=== PATIENT | male | born 1960 | race Caucasian/White ===

== ENCOUNTER 2021-07-23 18:34 | Inpatient (IN) | payer MEDICARE, MEDICAID ==
[~2021-07-23] VITALS: Ht 198.1 cm; Wt 112.3 kg
[~2021-07-23 18:34] MED LIST: ACET-1008 PO; AMIO200T61 PO; AMIT25TA9 PO; APIX5TAB3 PO; ASPI-1071 PO; DIGO125T PO; EMPA25TA PO; GABA300C PO; HYDR-3964 PO; HYDR25TA4 PO; INSU100V9 SQ; LEVO125T8 PO; LISI20TA28 PO; LOP25T PO; METF-438 PO; SIMV-42 PO
--- NOTE | 2021-07-23 19:13 | NUR ---
Dr. Dominguez notified of patient's current BP 88/57, 02 sat 98% RA and IVF by EMS running. Per MD, caution with IVF given hx and continue NS @ 100 mls/hr.
--- NOTE | 2021-07-23 19:15 | NUR ---
Sister at bedside: Emilia Lindquist [phone]
[2021-07-23 19:50] LABS: BASOPHILS % (AUTO) 0.4 % (0-1); EOSINOPHILS % (AUTO) 0.1 % (0-6); HEMATOCRIT 25.7 % (42.0-52.0); HEMOGLOBIN 8.5 g/dl (14.0-17.9); LYMPHOCYTES # (AUTO) 0.8 X10'3 (1.1-4.8); LYMPHOCYTES % (AUTO) 8.3 % (21-51); MEAN CORPUSCULAR HGB CONC 33.2 g/dL (33.0-36.5); MEAN CORPUSCULAR VOLUME 96.6 FL (78-98); MEAN PLATELET VOLUME 8.1 FL (7.4-10.4); MONOCYTES # (AUTO) 0.4 X10'3 (0-0.9); MONOCYTES % (AUTO) 4.2 % (2-12); NEUTROPHILS # (AUTO) 8.8 X10'3 (1.8-7.7); PLATELET COUNT 631 X10'3 (140-440); RED BLOOD COUNT 2.66 X10'6 (4.70-6.10); WHITE BLOOD COUNT 10.1 X10'3 (4.5-11.0)
[2021-07-23 19:59] LABS: ALANINE AMINOTRANSFERASE 38 U/L (12-78); ALBUMIN 2.4 G/DL (3.4-5.0); ALBUMIN/GLOBULIN RATIO 0.6 (1.1-1.5); ALKALINE PHOSPHATASE 120 IU/L (46-116); ANION GAP 11 (8-16); ASPARTATE AMINO TRANSFERASE 20 U/L (10-37); BILIRUBIN,TOTAL 0.5 MG/DL (0.1-1.0); BLOOD UREA NITROGEN 28 MG/DL (7-18); BUN/CREATININE RATIO 15.8 (5.4-32.0); CALCIUM 7.7 MG/DL (8.5-10.1); CHLORIDE 101 MMOL/L (99-107); CREATININE 1.77 MG/DL (0.60-1.10); GLUCOSE 184 MG/DL (70-104); POTASSIUM 4.9 MMOL/L (3.5-5.1); SODIUM 134 MMOL/L (135-145); TOTAL CARBON DIOXIDE 21.8 MMOL/L (24-32); TOTAL PROTEIN 6.5 G/DL (6.4-8.2); eGFR 39 ML/MIN
[2021-07-23] MEDS ORDERED: normal saline 1000ML IV soln IVB ONE (20:25)
[2021-07-23] MEDS ORDERED: potassium Cl 20 mEq SR tablet PO PRN ×2 (21:00)
[2021-07-23] MEDS ORDERED: ondansetron/PF 4mg/2ml inj IV PRN (21:00)
[2021-07-23] MEDS ORDERED: potassium Cl 40MEQ/1/2NS 520ml 520 ML IV PRN ×2 (21:00)
[2021-07-23] MEDS ORDERED: temazepam 15mg capsule PO PRN (21:00)
[2021-07-23] MEDS ORDERED: magnesium 4gm in 100ml NS 100 ML IV PRN (21:00)
[2021-07-23] MEDS ORDERED: acetaminophen 325mg tablet PO PRN ×2 (21:00)
[2021-07-23] MEDS ORDERED: magnesium 2GM in 50ml NS 50 ML IV PRN (21:00)
[2021-07-23] MEDS ORDERED: normal saline 1000ml 1,000 ML IV SCH (21:00)
[2021-07-23] MEDS ORDERED: magnesium Cl slow-release 64mg tablet PO PRN (21:00)
[2021-07-23] MEDS ORDERED: dextrose ORAL solution 15 GM/59 ML bottle PO PRN ×2 (21:05)
[2021-07-23] MEDS ORDERED: MESSAGE TO PHARMACY PO ONE (21:05)
[2021-07-23] MEDS ORDERED: dextrose 50%-water 50ml dispensing syringe IV PRN ×2 (21:05)
[2021-07-23] MEDS ORDERED: glucagon, human recombinant 1mg kit SUBCUT PRN (21:05)
[2021-07-23] MEDS ORDERED: AMIO200T27 PO (21:15)
[2021-07-23] MEDS ORDERED: DIGO125T PO (21:18)
[2021-07-23] MEDS ORDERED: FURO-149 PO (21:21)
[2021-07-23] MEDS ORDERED: LEVO500T89 PO (21:22)
[2021-07-23] MEDS ORDERED: PRED5TAB PO (21:23)
[2021-07-23] MEDS ORDERED: POTA10TA19 PO (21:24)
[2021-07-23] MEDS ORDERED: RIVA20TA PO (21:25)
[2021-07-23] MEDS ORDERED: HYDROcodone/acetaminophen 5mg/325mg tablet PO PRN (21:40)
[2021-07-24 02:32] LABS: HEMOGLOBIN 8.9 g/dl (14.0-17.9); MEAN PLATELET VOLUME 8.5 FL (7.4-10.4); MONOCYTES # (AUTO) 0.4 X10'3 (0-0.9); WHITE BLOOD COUNT 11.3 X10'3 (4.5-11.0)
[2021-07-24 02:34] LABS: BASOPHILS # (AUTO) 0.1 X10'3 (0-0.2); BASOPHILS % (AUTO) 0.7 % (0-1); EOSINOPHILS % (AUTO) 0.1 % (0-6); LYMPHOCYTES # (AUTO) 1.1 X10'3 (1.1-4.8); LYMPHOCYTES % (AUTO) 9.7 % (21-51); MEAN CORPUSCULAR HEMOGLOBIN 31.2 PG (27.0-31.0); MEAN CORPUSCULAR HGB CONC 31.9 g/dL (33.0-36.5); MEAN CORPUSCULAR VOLUME 98.1 FL (78-98); MONOCYTES % (AUTO) 3.1 % (2-12); NEUTROPHILS # (AUTO) 9.7 X10'3 (1.8-7.7); NEUTROPHILS % (AUTO) 86.4 % (42-75); PLATELET COUNT 680 X10'3 (140-440); RED BLOOD COUNT 2.85 X10'6 (4.70-6.10); RED CELL DISTRIBUTION WIDTH 14.3 % (11.5-14.5)
[2021-07-24 02:39] LABS: ALANINE AMINOTRANSFERASE 41 U/L (12-78); ALBUMIN 2.5 G/DL (3.4-5.0); ALBUMIN/GLOBULIN RATIO 0.6 (1.1-1.5); ALKALINE PHOSPHATASE 115 IU/L (46-116); ANION GAP 14 (8-16); ASPARTATE AMINO TRANSFERASE 38 U/L (10-37); BILIRUBIN,TOTAL 0.7 MG/DL (0.1-1.0); BLOOD UREA NITROGEN 33 MG/DL (7-18); BUN/CREATININE RATIO 18.1 (5.4-32.0); CHLORIDE 100 MMOL/L (99-107); CREATININE 1.82 MG/DL (0.60-1.10); GLUCOSE 198 MG/DL (70-104); POTASSIUM 5.1 MMOL/L (3.5-5.1); SODIUM 135 MMOL/L (135-145); TOTAL CARBON DIOXIDE 21.2 MMOL/L (24-32); TOTAL PROTEIN 6.7 G/DL (6.4-8.2); eGFR 38 ML/MIN
[2021-07-24 02:42] LABS: MAGNESIUM 2.4 MG/DL (1.5-2.4)
[2021-07-24 07:30] VITALS: BP 101/65
[2021-07-24] MEDS: K and/or MAG REPLACEMENT MC SCH ×2 (08:00→20:00)
[2021-07-24] MEDS: metoprolol tartrate 50mg tablet PO SCH ×2 (08:00→20:00)
[2021-07-24] MEDS ORDERED: heparin, porcine 5000 units/ml vial SQ SCH (08:00)
[2021-07-24] MEDS: lisinopril 5mg tablet PO SCH (08:00)
[2021-07-24] MEDS: amiodarone 200mg tablet PO SCH ×2 (09:03→20:12)
[2021-07-24] MEDS: aspirin 81mg, enteric-coated 1 TAB TABLET.DR PO SCH (09:03)
[2021-07-24] MEDS: digoxin 125mcg (0.125mg) tablet PO SCH (09:03)
[2021-07-24] MEDS: levoFLOXACIN 500mg tablet PO SCH (09:03)
[2021-07-24] MEDS: predniSONE 5mg tablet PO SCH (09:04)
[2021-07-24] MEDS: levoTHYROXINE 125mcg tablet PO SCH (09:04)
--- NOTE | 2021-07-24 09:13 | NUR ---
notified. PAGER ID: [phone] MESSAGE: Re: Lopez Huerta. [id number]. Pt. orthopneic. Diminished Left base. Placed on 1L NC. Vitals WNL but looks unwell.. Held blood pressure medication. Thanks. Mary. [phone].
[2021-07-24 11:00] VITALS: BP 101/67
--- NOTE | 2021-07-24 14:13 | NUR ---
Paged the PICC nurse to see if she could place a PIV. Addendum: 07/24/21 at 1417 by Connie Pepe RN PICC nurse called back and stated that she can't place a PIV because she is on lunch right now and after her lunch that she has to place two PICCs in the ICU.
--- NOTE | 2021-07-24 14:54 | NUR ---
notified. PAGER ID: [phone] MESSAGE: Re: Lopez yun. [id number]. Normal ZEN found on vascular US.. Abnomal, retrograde flow in the left DPA. No stenosis or occlusion visualized. Thanks mayte. [id number].
[2021-07-24] MEDS ORDERED: ondansetron 4mg rapidly disintigrating tab PO PRN (14:55)
[2021-07-24 15:00] VITALS: BP 103/54
--- NOTE | 2021-07-24 15:24 | NUR ---
notified. PAGER ID: [phone] MESSAGE: Re: Deanna Lopez. [id number]. Elva from Cardiology not seeing patient because he is a Dr. Chawla patient. She called Dr. Chawla but no answer. Thanks. mayte. [phone].
[2021-07-24] MEDS: rivaroxaban 20mg tablet PO SCH (16:25)
[2021-07-24 18:00] VITALS: BP 103/54
--- NOTE | 2021-07-24 18:19 | NUR ---
Problems reprioritized. Patient report given, questions answered & plan of care reviewed with AMBER Davies.
--- NOTE | 2021-07-24 18:30 | NUR ---
Patient in room PCU 3016. I have received report from Mary CLARK and had the opportunity to ask questions and assume patient care.
[2021-07-24] MEDS: insulin Lispro (HumaLOG) vial - multi-dose SQ SCH (19:13)
[2021-07-24] MEDS: amitriptyline 25mg tablet PO SCH (20:12)
[2021-07-24] MEDS: lactobacillus rhamnosus 10,000 MMU CELLS/CAPSULE PO SCH (20:12)
[2021-07-24] MEDS: atorvastatin 10mg tablet PO SCH (20:12)
[2021-07-24] MEDS: insulin glargine (Lantus) pen - multi-dose SQ SCH (21:37)
[2021-07-24 22:00] VITALS: BP 101/57
[2021-07-25 02:00] VITALS: BP 92/52
[2021-07-25 05:56] LABS: HEMOGLOBIN 8.9 g/dl (14.0-17.9); MEAN PLATELET VOLUME 7.9 FL (7.4-10.4); MONOCYTES # (AUTO) 0.9 X10'3 (0-0.9)
[2021-07-25 05:59] LABS: BASOPHILS % (AUTO) 0.3 % (0-1); EOSINOPHILS % (AUTO) 0.3 % (0-6); LYMPHOCYTES # (AUTO) 2.1 X10'3 (1.1-4.8); LYMPHOCYTES % (AUTO) 18.7 % (21-51); MEAN CORPUSCULAR HEMOGLOBIN 32.3 PG (27.0-31.0); MONOCYTES % (AUTO) 7.7 % (2-12); NEUTROPHILS # (AUTO) 8.3 X10'3 (1.8-7.7); PLATELET COUNT 637 X10'3 (140-440); RED BLOOD COUNT 2.76 X10'6 (4.70-6.10); RED CELL DISTRIBUTION WIDTH 14.5 % (11.5-14.5); WHITE BLOOD COUNT 11.3 X10'3 (4.5-11.0)
[2021-07-25 06:00] VITALS: BP 98/65
[2021-07-25 06:08] LABS: ALANINE AMINOTRANSFERASE 38 U/L (12-78); ALBUMIN 2.6 G/DL (3.4-5.0); ALBUMIN/GLOBULIN RATIO 0.6 (1.1-1.5); ALKALINE PHOSPHATASE 127 IU/L (46-116); ANION GAP 10 (8-16); ASPARTATE AMINO TRANSFERASE 26 U/L (10-37); BILIRUBIN,TOTAL 1.1 MG/DL (0.1-1.0); BLOOD UREA NITROGEN 36 MG/DL (7-18); BUN/CREATININE RATIO 21.3 (5.4-32.0); CALCIUM 8.3 MG/DL (8.5-10.1); CHLORIDE 100 MMOL/L (99-107); CREATININE 1.69 MG/DL (0.60-1.10); GLUCOSE 157 MG/DL (70-104); MAGNESIUM 2.1 MG/DL (1.5-2.4); POTASSIUM 4.7 MMOL/L (3.5-5.1); SODIUM 133 MMOL/L (135-145); TOTAL CARBON DIOXIDE 22.6 MMOL/L (24-32); TOTAL PROTEIN 6.7 G/DL (6.4-8.2); eGFR 41 ML/MIN
--- NOTE | 2021-07-25 06:23 | NUR ---
Problems reprioritized. Patient report given, questions answered & plan of care reviewed with Ritika CLARK.
[2021-07-25 06:44] LABS: LARGE PLATELETS FEW; PLATELET ESTIMATE INCREASED
[2021-07-25] MEDS: predniSONE 5mg tablet PO SCH (07:21)
[2021-07-25] MEDS: levoFLOXACIN 500mg tablet PO SCH (07:21)
[2021-07-25] MEDS: levoTHYROXINE 125mcg tablet PO SCH (07:21)
[2021-07-25] MEDS: lactobacillus rhamnosus 10,000 MMU CELLS/CAPSULE PO SCH ×2 (07:21→20:47)
[2021-07-25] MEDS: aspirin 81mg, enteric-coated 1 TAB TABLET.DR PO SCH (07:22)
[2021-07-25] MEDS: digoxin 125mcg (0.125mg) tablet PO SCH (07:23)
[2021-07-25] MEDS: K and/or MAG REPLACEMENT MC SCH ×2 (08:00→20:00)
[2021-07-25] MEDS: metoprolol tartrate 50mg tablet PO SCH ×2 (08:00→20:00)
[2021-07-25] MEDS: lisinopril 5mg tablet PO SCH (08:00)
[2021-07-25] MEDS: amiodarone 200mg tablet PO SCH ×2 (08:00→20:47)
[2021-07-25] MEDS: ibuprofen tablet 400 MG TABLET PO SCH ×3 (09:21→16:44)
[2021-07-25] MEDS: insulin Lispro (HumaLOG) vial - multi-dose SQ SCH ×3 (09:26→19:29)
--- NOTE | 2021-07-25 10:00 | NUR ---
Recieved verbal order from Dr. Hopkins for .25mg xanax prn q8hr for anxiety.
[2021-07-25 11:00] VITALS: BP 92/62
[2021-07-25] MEDS ORDERED: albumin (Human) 5% 250ml 250 ML IV ONE ×3 (12:05→15:15)
[2021-07-25 15:00] VITALS: BP 110/75
--- NOTE | 2021-07-25 15:33 | NUR ---
Pt is being transported off the floor for procedure.
[2021-07-25] MEDS: rivaroxaban 20mg tablet PO SCH (16:44)
[2021-07-25 18:00] VITALS: BP 92/57
--- NOTE | 2021-07-25 18:23 | NUR ---
Problems reprioritized. Patient report given, questions answered & plan of care reviewed with Keke CLARK.
--- NOTE | 2021-07-25 18:30 | NUR ---
Patient in room PCU 3016. I have received report from Mary CLARK and had the opportunity to ask questions and assume patient care.
[2021-07-25] MEDS: atorvastatin 10mg tablet PO SCH (20:47)
[2021-07-25] MEDS: amitriptyline 25mg tablet PO SCH (20:47)
[2021-07-25] MEDS: insulin glargine (Lantus) pen - multi-dose SQ SCH (21:52)
[2021-07-25 22:00] VITALS: BP 90/55
[2021-07-26] VITALS (7 sets, daily range): BP systolic 88–128; BP diastolic 51–66
[2021-07-26] MEDS: ALPRAZolam 0.25mg tablet PO PRN ×2 (01:12→20:42)
--- NOTE | 2021-07-26 05:15 | NUR ---
[place] documentation: I have reviewed and agree with all interventions, assessments performed and documented by Danitza CLARK.
--- NOTE | 2021-07-26 05:16 | NUR ---
[place] Medication Administration: For this medication-pass time frame, all medication were reviewed, dispensed, administered and documented per hospital policy by Danitza CLARK .
[2021-07-26 06:02] LABS: BASOPHILS % (AUTO) 0.2 % (0-1); EOSINOPHILS % (AUTO) 0.5 % (0-6); HEMATOCRIT 26.3 % (42.0-52.0); HEMOGLOBIN 8.7 g/dl (14.0-17.9); LYMPHOCYTES # (AUTO) 2.4 X10'3 (1.1-4.8); MEAN CORPUSCULAR HGB CONC 33.2 g/dL (33.0-36.5); MEAN CORPUSCULAR VOLUME 96.5 FL (78-98); MEAN PLATELET VOLUME 7.9 FL (7.4-10.4); MONOCYTES # (AUTO) 0.7 X10'3 (0-0.9); MONOCYTES % (AUTO) 6.7 % (2-12); NEUTROPHILS % (AUTO) 68.6 % (42-75); PLATELET COUNT 517 X10'3 (140-440); RED BLOOD COUNT 2.73 X10'6 (4.70-6.10); RED CELL DISTRIBUTION WIDTH 14.2 % (11.5-14.5); WHITE BLOOD COUNT 10.2 X10'3 (4.5-11.0)
--- NOTE | 2021-07-26 06:10 | NUR ---
Patient in room PCU 3016. I have received report from Keke CLARK and had the opportunity to ask questions and assume patient care.
--- NOTE | 2021-07-26 06:11 | NUR ---
Problems reprioritized. Patient report given, questions answered & plan of care reviewed with Castillo CLARK.
[2021-07-26 06:22] LABS: ALANINE AMINOTRANSFERASE 37 U/L (12-78); ALBUMIN/GLOBULIN RATIO 0.8 (1.1-1.5); ALKALINE PHOSPHATASE 114 IU/L (46-116); ANION GAP 10 (8-16); ASPARTATE AMINO TRANSFERASE 21 U/L (10-37); BILIRUBIN,TOTAL 0.5 MG/DL (0.1-1.0); BLOOD UREA NITROGEN 35 MG/DL (7-18); BUN/CREATININE RATIO 22.6 (5.4-32.0); CALCIUM 8.1 MG/DL (8.5-10.1); CHLORIDE 102 MMOL/L (99-107); CREATININE 1.55 MG/DL (0.60-1.10); GLUCOSE 153 MG/DL (70-104); MAGNESIUM 2.2 MG/DL (1.5-2.4); POTASSIUM 4.2 MMOL/L (3.5-5.1); SODIUM 137 MMOL/L (135-145); TOTAL PROTEIN 6.6 G/DL (6.4-8.2); eGFR 46 ML/MIN
[2021-07-26] MEDS: metoprolol tartrate 50mg tablet PO SCH ×2 (08:00→20:00)
[2021-07-26] MEDS: K and/or MAG REPLACEMENT MC SCH ×2 (08:00→20:00)
[2021-07-26] MEDS: aspirin 81mg, enteric-coated 1 TAB TABLET.DR PO SCH (08:16)
[2021-07-26] MEDS: lactobacillus rhamnosus 10,000 MMU CELLS/CAPSULE PO SCH ×2 (08:16→20:42)
[2021-07-26] MEDS: digoxin 125mcg (0.125mg) tablet PO SCH (08:18)
[2021-07-26] MEDS: levoFLOXACIN 500mg tablet PO SCH (08:18)
[2021-07-26] MEDS: ibuprofen tablet 400 MG TABLET PO SCH ×3 (08:19→18:41)
[2021-07-26] MEDS: levoTHYROXINE 125mcg tablet PO SCH (08:19)
[2021-07-26] MEDS: amiodarone 200mg tablet PO SCH ×2 (08:19→20:42)
[2021-07-26] MEDS: predniSONE 5mg tablet PO SCH (08:20)
[2021-07-26] MEDS ORDERED: albumin (Human) 5% 250ml 250 ML IV ONE (09:20)
[2021-07-26] MEDS: insulin Lispro (HumaLOG) vial - multi-dose SQ SCH ×4 (09:31→21:49)
--- NOTE | 2021-07-26 18:16 | NUR ---
Problems reprioritized. Patient report given, questions answered & plan of care reviewed with Keke CLARK
--- NOTE | 2021-07-26 18:30 | NUR ---
Patient in room PCU 3016. I have received report from Shree CLARK and had the opportunity to ask questions and assume patient care.
[2021-07-26] MEDS: amitriptyline 25mg tablet PO SCH (20:42)
[2021-07-26] MEDS: atorvastatin 10mg tablet PO SCH (20:43)
[2021-07-26] MEDS: insulin glargine (Lantus) pen - multi-dose SQ SCH (21:49)
[2021-07-27] VITALS (7 sets, daily range): BP systolic 80–107; BP diastolic 44–65
[2021-07-27 06:11] LABS: BASOPHILS % (AUTO) 0.2 % (0-1); EOSINOPHILS % (AUTO) 0.2 % (0-6); HEMATOCRIT 26.7 % (42.0-52.0); HEMOGLOBIN 8.8 g/dl (14.0-17.9); LYMPHOCYTES % (AUTO) 20.5 % (21-51); MEAN CORPUSCULAR HEMOGLOBIN 32.3 PG (27.0-31.0); MEAN CORPUSCULAR HGB CONC 32.8 g/dL (33.0-36.5); MEAN CORPUSCULAR VOLUME 98.6 FL (78-98); MEAN PLATELET VOLUME 7.7 FL (7.4-10.4); MONOCYTES # (AUTO) 0.6 X10'3 (0-0.9); MONOCYTES % (AUTO) 6.6 % (2-12); NEUTROPHILS % (AUTO) 72.5 % (42-75); PLATELET COUNT 524 X10'3 (140-440); RED BLOOD COUNT 2.71 X10'6 (4.70-6.10); RED CELL DISTRIBUTION WIDTH 14.3 % (11.5-14.5); WHITE BLOOD COUNT 9.7 X10'3 (4.5-11.0)
--- NOTE | 2021-07-27 06:15 | NUR ---
Problems reprioritized. Patient report given, questions answered & plan of care reviewed with Isadora CLARK.
[2021-07-27 06:24] LABS: ALANINE AMINOTRANSFERASE 36 U/L (12-78); ALBUMIN/GLOBULIN RATIO 0.9 (1.1-1.5); ALKALINE PHOSPHATASE 113 IU/L (46-116); ANION GAP 10 (8-16); ASPARTATE AMINO TRANSFERASE 20 U/L (10-37); BILIRUBIN,TOTAL 0.4 MG/DL (0.1-1.0); BLOOD UREA NITROGEN 31 MG/DL (7-18); BUN/CREATININE RATIO 22.6 (5.4-32.0); CALCIUM 8.4 MG/DL (8.5-10.1); CHLORIDE 106 MMOL/L (99-107); CREATININE 1.37 MG/DL (0.60-1.10); GLUCOSE 142 MG/DL (70-104); MAGNESIUM 2.3 MG/DL (1.5-2.4); POTASSIUM 4.2 MMOL/L (3.5-5.1); SODIUM 141 MMOL/L (135-145); TOTAL CARBON DIOXIDE 24.8 MMOL/L (24-32); TOTAL PROTEIN 6.5 G/DL (6.4-8.2); eGFR 53 ML/MIN
[2021-07-27] MEDS: metoprolol tartrate 50mg tablet PO SCH ×2 (08:00→19:16)
[2021-07-27] MEDS: K and/or MAG REPLACEMENT MC SCH ×2 (08:00→19:14)
[2021-07-27] MEDS: ibuprofen tablet 400 MG TABLET PO SCH ×3 (08:08→17:47)
[2021-07-27] MEDS: aspirin 81mg, enteric-coated 1 TAB TABLET.DR PO SCH (08:08)
[2021-07-27] MEDS: levoTHYROXINE 125mcg tablet PO SCH (08:08)
[2021-07-27] MEDS: predniSONE 5mg tablet PO SCH (08:08)
[2021-07-27] MEDS: lactobacillus rhamnosus 10,000 MMU CELLS/CAPSULE PO SCH ×2 (08:08→19:25)
[2021-07-27] MEDS: levoFLOXACIN 500mg tablet PO SCH (08:08)
--- NOTE | 2021-07-27 08:34 | NUR ---
Page to Dr. Hopkins [id number] Yeadriel - QT 0.42/ QTc- 0.49. Still give amiodarone? Isadora [phone]
[2021-07-27] MEDS: amiodarone 200mg tablet PO SCH ×2 (09:09→19:25)
[2021-07-27] MEDS ORDERED: gabapentin 400mg capsule PO ONE (10:35)
[2021-07-27] MEDS ORDERED: cefazolin/dext.iso 2gm/50ml 50 ML IV ONE (10:35)
[2021-07-27] MEDS ORDERED: cefazolin/dext.iso 2gm/100ml 100 ML IV ONE (11:00)
[2021-07-27 11:27] LABS: PARTIAL THROMBOPLASTIN TIME 29 SECONDS (22-32)
--- NOTE | 2021-07-27 12:30 | NUR ---
Initial: Pt admitted w/ weakness and low blood pressure per EMR. 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 Pt's appetite is low, similarly to previous admit when pt requested Ensure Enlive. Pt may benefit from ONS this admit as well. Current avg intake 36% x 8 meals on CCHO/Heart Healthy diet, not meeting needs. Pt denies any food preferences. Pt noted to be constipated, though last documented BM 07/26. Will continue to monitor. Recommend 1. Continue CCHO/Heart Healthy diet as tolerated 2. Ensure Enlive TID to provide 1050kcals and 60g protein if consumed 100% 3. Bowel care per rx 4. Weekly wts Addendum: 07/27/21 at [address] Amended: Links added.
[2021-07-27] MEDS: insulin Lispro (HumaLOG) vial - multi-dose SQ SCH ×3 (13:30→21:54)
[2021-07-27] MEDS: lactose-reduced food (Ensure Enlive) - 237ml bottle PO SCH (18:00)
--- NOTE | 2021-07-27 18:00 | NUR ---
Patient in room PCU 3016. I have received report from cynthia ponce and had the opportunity to ask questions and assume patient care.
--- NOTE | 2021-07-27 18:34 | NUR ---
Problems reprioritized. Patient report given, questions answered & plan of care reviewed with Lauren CLARK.
[2021-07-27] MEDS: mupirocin 2% nasal ointment 1gm UD NS SCH (19:25)
[2021-07-27] MEDS: atorvastatin 10mg tablet PO SCH (21:40)
[2021-07-27] MEDS: amitriptyline 25mg tablet PO SCH (21:40)
[2021-07-27] MEDS: ALPRAZolam 0.25mg tablet PO PRN (21:40)
[2021-07-27] MEDS: insulin glargine (Lantus) pen - multi-dose SQ SCH (21:52)
[2021-07-28] VITALS (21 sets, daily range): BP systolic 98–127; BP diastolic 57–69
[2021-07-28 07:16] LABS: BASOPHILS % (AUTO) 0.3 % (0-1); EOSINOPHILS % (AUTO) 0.4 % (0-6); HEMOGLOBIN 8.8 g/dl (14.0-17.9); LYMPHOCYTES # (AUTO) 2.2 X10'3 (1.1-4.8); LYMPHOCYTES % (AUTO) 21.5 % (21-51); MEAN CORPUSCULAR HEMOGLOBIN 31.7 PG (27.0-31.0); MEAN CORPUSCULAR HGB CONC 32.6 g/dL (33.0-36.5); MEAN CORPUSCULAR VOLUME 97.4 FL (78-98); MEAN PLATELET VOLUME 7.7 FL (7.4-10.4); MONOCYTES # (AUTO) 0.6 X10'3 (0-0.9); MONOCYTES % (AUTO) 6.2 % (2-12); NEUTROPHILS # (AUTO) 7.2 X10'3 (1.8-7.7); NEUTROPHILS % (AUTO) 71.6 % (42-75); PLATELET COUNT 531 X10'3 (140-440); RED BLOOD COUNT 2.78 X10'6 (4.70-6.10); RED CELL DISTRIBUTION WIDTH 14.7 % (11.5-14.5); WHITE BLOOD COUNT 10.1 X10'3 (4.5-11.0)
[2021-07-28] MEDS: mupirocin 2% nasal ointment 1gm UD NS SCH ×2 (07:28→19:46)
[2021-07-28] MEDS: levoTHYROXINE 125mcg tablet PO SCH (07:28)
[2021-07-28] MEDS: levoFLOXACIN 500mg tablet PO SCH (07:28)
[2021-07-28] MEDS: predniSONE 5mg tablet PO SCH (07:28)
[2021-07-28] MEDS: lactobacillus rhamnosus 10,000 MMU CELLS/CAPSULE PO SCH ×2 (07:28→19:39)
[2021-07-28] MEDS: amiodarone 200mg tablet PO SCH ×2 (07:28→19:46)
[2021-07-28 07:36] LABS: ALANINE AMINOTRANSFERASE 33 U/L (12-78); ALBUMIN 2.9 G/DL (3.4-5.0); ALBUMIN/GLOBULIN RATIO 0.9 (1.1-1.5); ALKALINE PHOSPHATASE 112 IU/L (46-116); ANION GAP 10 (8-16); ASPARTATE AMINO TRANSFERASE 16 U/L (10-37); BILIRUBIN,TOTAL 0.4 MG/DL (0.1-1.0); BLOOD UREA NITROGEN 28 MG/DL (7-18); BUN/CREATININE RATIO 19.9 (5.4-32.0); CALCIUM 8.3 MG/DL (8.5-10.1); CHLORIDE 107 MMOL/L (99-107); CREATININE 1.41 MG/DL (0.60-1.10); GLUCOSE 117 MG/DL (70-104); MAGNESIUM 2.2 MG/DL (1.5-2.4); SODIUM 142 MMOL/L (135-145); TOTAL CARBON DIOXIDE 24.9 MMOL/L (24-32); TOTAL PROTEIN 6.3 G/DL (6.4-8.2); eGFR 51 ML/MIN
[2021-07-28] MEDS: metoprolol tartrate 50mg tablet PO SCH ×2 (08:00→19:38)
[2021-07-28] MEDS: aspirin 81mg, enteric-coated 1 TAB TABLET.DR PO SCH (08:00)
[2021-07-28] MEDS: K and/or MAG REPLACEMENT MC SCH ×2 (08:00→19:22)
[2021-07-28] MEDS: lactose-reduced food (Ensure Enlive) - 237ml bottle PO SCH ×3 (08:00→18:00)
[2021-07-28] MEDS: ibuprofen tablet 400 MG TABLET PO SCH ×3 (08:30→17:42)
[2021-07-28] MEDS ORDERED: BUPIVAcaine 0.5% inj/PF 30 ML ONE (10:03)
[2021-07-28 11:15] LABS: CLARITY,URINE CLEAR (Clear); COLOR,URINE YELLOW (Yellow); GLUCOSE, URINE NEGATIVE (Neg); KETONES,URINE NEGATIVE (Neg); LEUKOCYTE ESTERASE ,URINE NEGATIVE (Neg); NITRITES, URINE NEGATIVE (Neg); OCCULT BLOOD,URINE NEGATIVE (Neg); PH,URINE 5.5 (4.8-8.0); PROTEIN,URINE NEGATIVE (Neg)
[2021-07-28 11:18] LABS: UA COLLECTION TYPE NON-SPECIFIED
[2021-07-28] MEDS ORDERED: midazolam 1 mg/ML 2ml injection ONE ×2 (11:57→12:45)
[2021-07-28] MEDS ORDERED: fentaNYL /PF 50mcg/ml 5ml ampule ONE (11:57)
[2021-07-28] MEDS ORDERED: sevoflurane 250ml liquid IH ONE (11:58)
[2021-07-28] MEDS ORDERED: BUPIVAcaine 0.5% inj/PF 30 ml vial IJ ONE (13:02)
[2021-07-28] MEDS ORDERED: morphine 2 MG/ML inj. syringe IV PRN (13:25)
[2021-07-28] MEDS ORDERED: meperidine/PF 25mg/ml syringe IV PRN ×3 (13:25)
[2021-07-28] MEDS ORDERED: ringers solution, lacted 1,000 ML IV SCH (13:25)
[2021-07-28] MEDS ORDERED: proCHLORperazine 10 MG/2 ml inj IV PRN (13:25)
[2021-07-28] MEDS ORDERED: morphine 4 MG/ML inj SYRINge IV PRN (13:25)
[2021-07-28] MEDS ORDERED: ondansetron/PF 4mg/2ml inj IV PRN ×2 (13:25→13:45)
[2021-07-28] MEDS ORDERED: neostigmine methylsulfate 1 MG/ML 10ml vial ONE (13:31)
[2021-07-28] MEDS ORDERED: propofol inj 20 ML IV ONE (13:31)
[2021-07-28] MEDS ORDERED: rocuronium 10mg/ml inj IV ONE (13:31)
[2021-07-28] MEDS ORDERED: glycopyrrolate 0.2mg/ml inj ONE (13:32)
[2021-07-28] MEDS ORDERED: potassium CL 10mEq/100ml bag 100 ML IV PRN (13:45)
[2021-07-28] MEDS ORDERED: potassium Cl 20mEq/100mL bag 100 ML IV PRN (13:45)
[2021-07-28] MEDS ORDERED: potassium Cl 20 mEq SR tablet PO PRN (13:45)
[2021-07-28] MEDS ORDERED: magnesium 4gm in 100ml NS 100 ML IV PRN (13:45)
[2021-07-28] MEDS ORDERED: magnesium 2GM in 50ml NS 50 ML IV PRN (13:45)
[2021-07-28] MEDS ORDERED: potassium Cl 40MEQ/1/2NS 520ml 520 ML IV PRN (13:45)
[2021-07-28] MEDS ORDERED: potassium Cl 40MEQ/250ML bag 250 ML IV PRN (13:45)
--- NOTE | 2021-07-28 13:55 | NUR ---
Received from OR via , accompanied by Anesthesiologist DR LEWIS and report given by Anesthesiolgist. AWAKENS TO VOICE. VITALS STABLE. DRESSINGS DI. MADDI PAIN. CHEST TUBE TO LCS WITHOUT AIR LEAK NOTED.
--- NOTE | 2021-07-28 14:45 | NUR ---
Report called to receiving nurse. Transferred via BED Belongings . Special Issues communicated to receiving nurse.AWAKE AND ORIENTED. VITALS STABLE. DRESSINGS DI. MADDI PAIN. TO U RM 3016 A AT THIS TIME.
[2021-07-28] MEDS: HYDROcodone/acetaminophen 10/325mg tab PO PRN ×2 (15:26→19:40)
[2021-07-28] MEDS: ceFAZolin 1GM/D5W- ADD-VANTAGE 50 ML IV SCH ×2 (16:53→23:36)
--- NOTE | 2021-07-28 18:21 | NUR ---
Patient in room PCU 3016. I have received report from MARLA CLARK and had the opportunity to ask questions and assume patient care.
--- NOTE | 2021-07-28 18:47 | NUR ---
Problems reprioritized. Patient report given, questions answered & plan of care reviewed with Deana CLARK.
[2021-07-28] MEDS: insulin Lispro (HumaLOG) vial - multi-dose SQ SCH (19:31)
[2021-07-28] MEDS: docusate sod 100mg capsule PO SCH (19:36)
[2021-07-28] MEDS: ALPRAZolam 0.25mg tablet PO PRN (19:46)
[2021-07-28] MEDS: potassium Cl 20 mEq SR tablet PO SCH (19:47)
[2021-07-28] MEDS: magnesium Cl slow-release 64mg tablet PO SCH (19:48)
--- NOTE | 2021-07-28 21:22 | NUR ---
blood glucometers off line per bellows charger assembler. will check when back online for 2100 check. AMADOR CLARK
[2021-07-28] MEDS: amitriptyline 25mg tablet PO SCH (21:58)
[2021-07-28] MEDS: atorvastatin 10mg tablet PO SCH (21:59)
[2021-07-28] MEDS: insulin glargine (Lantus) pen - multi-dose SQ SCH (22:10)
[2021-07-29] VITALS (10 sets, daily range): BP systolic 83–133; BP diastolic 32–72
[2021-07-29] MEDS: HYDROcodone/acetaminophen 10/325mg tab PO PRN ×2 (01:06→19:40)
--- NOTE | 2021-07-29 01:11 | NUR ---
STRIKE THROUGH SHADOWING ON DRESSING NOTED, MARKED FOR SURGEON. AMADOR CLARK
--- NOTE | 2021-07-29 01:21 | NUR ---
REIFORCED PER PROTOCOL. AMADOR CLARK
[2021-07-29 01:48] LABS: BASOPHILS % (AUTO) 0.3 % (0-1); EOSINOPHILS % (AUTO) 0.2 % (0-6); HEMATOCRIT 27.8 % (42.0-52.0); LYMPHOCYTES # (AUTO) 1.8 X10'3 (1.1-4.8); LYMPHOCYTES % (AUTO) 13.2 % (21-51); MEAN CORPUSCULAR HEMOGLOBIN 31.7 PG (27.0-31.0); MEAN CORPUSCULAR HGB CONC 32.2 g/dL (33.0-36.5); MEAN CORPUSCULAR VOLUME 98.4 FL (78-98); MEAN PLATELET VOLUME 7.9 FL (7.4-10.4); MONOCYTES # (AUTO) 0.5 X10'3 (0-0.9); NEUTROPHILS % (AUTO) 82.3 % (42-75); PLATELET COUNT 518 X10'3 (140-440); RED BLOOD COUNT 2.83 X10'6 (4.70-6.10); RED CELL DISTRIBUTION WIDTH 15.2 % (11.5-14.5); WHITE BLOOD COUNT 13.4 X10'3 (4.5-11.0)
[2021-07-29 01:56] LABS: ALBUMIN 2.6 G/DL (3.4-5.0); ANION GAP 8 (8-16); BLOOD UREA NITROGEN 29 MG/DL (7-18); BUN/CREATININE RATIO 21.2 (5.4-32.0); CALCIUM 7.9 MG/DL (8.5-10.1); CHLORIDE 108 MMOL/L (99-107); CREATININE 1.37 MG/DL (0.60-1.10); GLUCOSE 134 MG/DL (70-104); MAGNESIUM 1.9 MG/DL (1.5-2.4); POTASSIUM 4.5 MMOL/L (3.5-5.1); SODIUM 141 MMOL/L (135-145); TOTAL CARBON DIOXIDE 25.4 MMOL/L (24-32); eGFR 53 ML/MIN
[2021-07-29] MEDS ORDERED: albumin (Human) 5% 250ml 250 ML IV STA (02:23)
[2021-07-29] MEDS ORDERED: albumin (Human) 5% 250ml 250 ML IV ONE (02:25)
--- NOTE | 2021-07-29 02:27 | NUR ---
CALLED MARRY REGARDING BP LOW-H/H STABLE, ORDERED OF ALBUMIN. WILL ADMINISTER PER PROTOCOL. AMADOR CLARK
--- NOTE | 2021-07-29 02:28 | NUR ---
CLARIFICATION: ORDERED 500 ML ALBUMIN PER PROTOCOL.AMADOR CLARK
--- NOTE | 2021-07-29 06:24 | NUR ---
PATIENT IMPULSIVELY GOT UP TO SIDE OF BED-ORDERING CHEST XRAY FOR CHEST TUBE PLACEMENT-BP 96/60 MANUAL, 83/47 AUTO. DUMPED OVER 150 INTO [facility], CALLING MD NOW.
--- NOTE | 2021-07-29 07:01 | NUR ---
Problems reprioritized. Patient report given, questions answered & plan of care reviewed with ANGEL CLARK.
[2021-07-29] MEDS: lactobacillus rhamnosus 10,000 MMU CELLS/CAPSULE PO SCH ×2 (07:51→19:27)
[2021-07-29] MEDS: amiodarone 200mg tablet PO SCH ×2 (07:51→19:28)
[2021-07-29] MEDS: docusate sod 100mg capsule PO SCH ×2 (07:51→19:28)
[2021-07-29] MEDS: aspirin 81mg, enteric-coated 1 TAB TABLET.DR PO SCH (07:52)
[2021-07-29] MEDS: magnesium Cl slow-release 64mg tablet PO SCH ×2 (07:58→19:30)
[2021-07-29] MEDS: ibuprofen tablet 400 MG TABLET PO SCH (07:58)
[2021-07-29] MEDS: levoFLOXACIN 500mg tablet PO SCH (07:58)
[2021-07-29] MEDS: predniSONE 5mg tablet PO SCH (07:59)
[2021-07-29] MEDS: levoTHYROXINE 125mcg tablet PO SCH (07:59)
[2021-07-29] MEDS: K and/or MAG REPLACEMENT MC SCH ×2 (08:00→20:00)
[2021-07-29] MEDS: lactose-reduced food (Ensure Enlive) - 237ml bottle PO SCH ×3 (08:00→18:06)
[2021-07-29] MEDS: potassium Cl 20 mEq SR tablet PO SCH ×2 (08:00→19:29)
[2021-07-29] MEDS: mupirocin 2% nasal ointment 1gm UD NS SCH (08:00)
[2021-07-29] MEDS: metoprolol tartrate 50mg tablet PO SCH ×2 (08:00→19:29)
[2021-07-29] MEDS: insulin Lispro (HumaLOG) vial - multi-dose SQ SCH ×2 (13:16→19:26)
--- NOTE | 2021-07-29 18:11 | NUR ---
Problems reprioritized. Patient report given, questions answered & plan of care reviewed with Deana CLARK.
--- NOTE | 2021-07-29 18:17 | NUR ---
Patient in room PCU 3016. I have received report from MARLA CLARK and had the opportunity to ask questions and assume patient care.
[2021-07-29] MEDS: enoxaparin 40mg/0.4ml syringe SUBCUT SCH (19:31)
[2021-07-29] MEDS: ALPRAZolam 0.25mg tablet PO PRN (19:38)
[2021-07-29] MEDS: amitriptyline 25mg tablet PO SCH (19:39)
[2021-07-29] MEDS: atorvastatin 10mg tablet PO SCH (19:40)
[2021-07-29] MEDS: insulin glargine (Lantus) pen - multi-dose SQ SCH (21:56)
[2021-07-30] MEDS: HYDROcodone/acetaminophen 10/325mg tab PO PRN ×4 (00:12→21:40)
[2021-07-30 02:00] VITALS: BP 141/84
[2021-07-30 03:58] LABS: BASOPHILS # (AUTO) 0.1 X10'3 (0-0.2); BASOPHILS % (AUTO) 0.5 % (0-1); EOSINOPHILS # (AUTO) 0.2 X10'3 (0-0.9); EOSINOPHILS % (AUTO) 1.6 % (0-6); HEMATOCRIT 30.1 % (42.0-52.0); HEMOGLOBIN 9.7 g/dl (14.0-17.9); LYMPHOCYTES % (AUTO) 15.6 % (21-51); MEAN CORPUSCULAR HEMOGLOBIN 31.7 PG (27.0-31.0); MEAN CORPUSCULAR HGB CONC 32.2 g/dL (33.0-36.5); MEAN CORPUSCULAR VOLUME 98.6 FL (78-98); MEAN PLATELET VOLUME 7.9 FL (7.4-10.4); MONOCYTES # (AUTO) 0.6 X10'3 (0-0.9); NEUTROPHILS % (AUTO) 77.3 % (42-75); PLATELET COUNT 515 X10'3 (140-440); RED BLOOD COUNT 3.05 X10'6 (4.70-6.10); WHITE BLOOD COUNT 12.9 X10'3 (4.5-11.0)
[2021-07-30 04:11] LABS: ALBUMIN 2.9 G/DL (3.4-5.0); ANION GAP 10 (8-16); BLOOD UREA NITROGEN 27 MG/DL (7-18); BUN/CREATININE RATIO 22.9 (5.4-32.0); CALCIUM 8.4 MG/DL (8.5-10.1); CHLORIDE 106 MMOL/L (99-107); CREATININE 1.18 MG/DL (0.60-1.10); GLUCOSE 98 MG/DL (70-104); MAGNESIUM 2.1 MG/DL (1.5-2.4); POTASSIUM 4.4 MMOL/L (3.5-5.1); SODIUM 142 MMOL/L (135-145); TOTAL CARBON DIOXIDE 26.2 MMOL/L (24-32); eGFR 63 ML/MIN
--- NOTE | 2021-07-30 06:46 | NUR ---
REPORT GIVEN TO DONNELL CLARK. AMADOR CLARK
[2021-07-30 07:00] VITALS: BP 103/59
[2021-07-30] MEDS: K and/or MAG REPLACEMENT MC SCH ×2 (08:00→19:54)
[2021-07-30] MEDS: lactose-reduced food (Ensure Enlive) - 237ml bottle PO SCH ×3 (08:00→18:03)
[2021-07-30] MEDS: metoprolol tartrate 50mg tablet PO SCH ×2 (08:00→20:02)
[2021-07-30] MEDS: docusate sod 100mg capsule PO SCH ×2 (08:00→19:56)
[2021-07-30] MEDS: lactobacillus rhamnosus 10,000 MMU CELLS/CAPSULE PO SCH ×2 (09:01→19:56)
[2021-07-30] MEDS: levoFLOXACIN 500mg tablet PO SCH (09:02)
[2021-07-30] MEDS: pantoprazole 40mg Tablet.DR PO SCH (09:03)
[2021-07-30] MEDS: predniSONE 5mg tablet PO SCH (09:03)
[2021-07-30] MEDS: amiodarone 200mg tablet PO SCH ×2 (09:03→19:56)
[2021-07-30] MEDS: aspirin 81mg, enteric-coated 1 TAB TABLET.DR PO SCH (09:03)
[2021-07-30] MEDS: levoTHYROXINE 125mcg tablet PO SCH (09:03)
[2021-07-30] MEDS: potassium Cl 20 mEq SR tablet PO SCH ×2 (09:04→19:59)
[2021-07-30] MEDS: magnesium Cl slow-release 64mg tablet PO SCH ×2 (09:04→19:56)
[2021-07-30 09:11] VITALS: BP 96/58
[2021-07-30] MEDS: insulin Lispro (HumaLOG) vial - multi-dose SQ SCH ×4 (09:49→22:01)
[2021-07-30 11:00] VITALS: BP 94/53
[2021-07-30 15:00] VITALS: BP 109/52
[2021-07-30 18:00] VITALS: BP 117/64
--- NOTE | 2021-07-30 18:00 | NUR ---
Patient in room PCU 3016. I have received report from adi ponce and had the opportunity to ask questions and assume patient care.
--- NOTE | 2021-07-30 18:54 | NUR ---
Problems reprioritized. Patient report given, questions answered & plan of care reviewed with Yahaira CLARK.
[2021-07-30] MEDS: enoxaparin 40mg/0.4ml syringe SUBCUT SCH (19:56)
[2021-07-30] MEDS: metoprolol tartrate 12.5mg (1/2 tablet) PO SCH (20:14)
--- NOTE | 2021-07-30 20:14 | NUR ---
Metoprolol 12.5mg correct dosage given. metoprolol 50mg scanned and says quarter tab to give, saved as given. pharmacy notified. I held the 50mg and waited for pharmacy to bring split tab 12.5mg therefore it was given, do not want to double document as if the quarter tab of the 50mg was given then again the split tab 12.5mg. in cocnlusion patient recieved dose of metoprolol 12.5mg at 2013.
[2021-07-30] MEDS: atorvastatin 10mg tablet PO SCH (21:39)
[2021-07-30] MEDS: ALPRAZolam 0.25mg tablet PO PRN (21:39)
[2021-07-30] MEDS: amitriptyline 25mg tablet PO SCH (21:39)
[2021-07-30] MEDS: insulin glargine (Lantus) pen - multi-dose SQ SCH (21:59)
[2021-07-31 06:00] VITALS: BP 101/52
--- NOTE | 2021-07-31 06:05 | NUR ---
Patient in room PCU 3016. I have received report from Lillie Syed RN and had the opportunity to ask questions and assume patient care.
[2021-07-31 06:50] LABS: BASOPHILS # (AUTO) 0.1 X10'3 (0-0.2); BASOPHILS % (AUTO) 0.9 % (0-1); EOSINOPHILS # (AUTO) 0.2 X10'3 (0-0.9); EOSINOPHILS % (AUTO) 2.1 % (0-6); HEMATOCRIT 30.9 % (42.0-52.0); LYMPHOCYTES # (AUTO) 2.5 X10'3 (1.1-4.8); LYMPHOCYTES % (AUTO) 21.2 % (21-51); MEAN CORPUSCULAR HEMOGLOBIN 31.4 PG (27.0-31.0); MEAN CORPUSCULAR HGB CONC 32.2 g/dL (33.0-36.5); MEAN CORPUSCULAR VOLUME 97.4 FL (78-98); MEAN PLATELET VOLUME 7.7 FL (7.4-10.4); MONOCYTES # (AUTO) 0.6 X10'3 (0-0.9); MONOCYTES % (AUTO) 5.3 % (2-12); NEUTROPHILS # (AUTO) 8.4 X10'3 (1.8-7.7); NEUTROPHILS % (AUTO) 70.5 % (42-75); PLATELET COUNT 433 X10'3 (140-440); RED BLOOD COUNT 3.18 X10'6 (4.70-6.10); RED CELL DISTRIBUTION WIDTH 14.9 % (11.5-14.5); WHITE BLOOD COUNT 11.9 X10'3 (4.5-11.0)
[2021-07-31 06:54] LABS: ALBUMIN 2.8 G/DL (3.4-5.0); ANION GAP 8 (8-16); BLOOD UREA NITROGEN 23 MG/DL (7-18); BUN/CREATININE RATIO 21.5 (5.4-32.0); CALCIUM 8.2 MG/DL (8.5-10.1); CHLORIDE 108 MMOL/L (99-107); CREATININE 1.07 MG/DL (0.60-1.10); GLUCOSE 131 MG/DL (70-104); POTASSIUM 4.5 MMOL/L (3.5-5.1); SODIUM 141 MMOL/L (135-145); TOTAL CARBON DIOXIDE 25.1 MMOL/L (24-32); eGFR 70 ML/MIN
[2021-07-31] MEDS: K and/or MAG REPLACEMENT MC SCH (08:00)
[2021-07-31] MEDS: levoFLOXACIN 500mg tablet PO SCH (08:00)
[2021-07-31] MEDS: lactose-reduced food (Ensure Enlive) - 237ml bottle PO SCH (08:00)
[2021-07-31] MEDS: potassium Cl 20 mEq SR tablet PO SCH (09:26)
[2021-07-31] MEDS: lactobacillus rhamnosus 10,000 MMU CELLS/CAPSULE PO SCH (09:27)
[2021-07-31] MEDS: amiodarone 200mg tablet PO SCH (09:28)
[2021-07-31] MEDS: docusate sod 100mg capsule PO SCH (09:28)
[2021-07-31] MEDS: pantoprazole 40mg Tablet.DR PO SCH (09:28)
[2021-07-31] MEDS: metoprolol tartrate 12.5mg (1/2 tablet) PO SCH (09:29)
[2021-07-31] MEDS: predniSONE 5mg tablet PO SCH (09:30)
[2021-07-31] MEDS: magnesium Cl slow-release 64mg tablet PO SCH (09:30)
[2021-07-31] MEDS: levoTHYROXINE 125mcg tablet PO SCH (09:30)
[2021-07-31] MEDS: insulin Lispro (HumaLOG) vial - multi-dose SQ SCH (09:35)
[2021-07-31] MEDS: aspirin 81mg, enteric-coated 1 TAB TABLET.DR PO SCH (09:36)
[2021-07-31 11:00] VITALS: BP 100/54
[2021-07-31 15:00] VITALS: BP 93/55
--- NOTE | 2021-07-31 15:55 | NUR ---
Patient is stable for discharge per MD orders. All discharge instructions reviewed with patient and all questions answered. No changes to prescriptions. PIV and central line discontinued with cannula intact. environmental monitoring technician discontinued. Belongings collected and sent with patient. Patient was wheeled to the lobby and left in a private vehicle with his sister.
== END 2021-07-31 15:55 | disposition home health service (06) | DRG 271 ==
LOC: ER 18:34 → ED HOLD 21:05 → PCU 3S 07-24 07:17
PROVIDERS: ADMIT Internal Medicine; ATTEND Internal Medicine
PROC: 0W9B4ZZ Drainage of Left Pleural Cavity, Percutaneous Endoscopic Approach (ICD-10-PCS; 2021-07-28)
PROC: B24CZZ4 Ultrasonography of Pericardium, Transesophageal (ICD-10-PCS; 2021-07-28)
PROC: 02HV33Z Insertion of Infusion Device into Superior Vena Cava, Percutaneous Approach (ICD-10-PCS; 2021-07-28)
PROC: 0W9D00Z Drainage of Pericardial Cavity with Drainage Device, Open Approach (ICD-10-PCS; principal; 2021-07-28 11:58)
DX: I24.1 Dressler's syndrome (principal); I31.3 Pericardial effusion (noninflammatory); I31.4 Cardiac tamponade; I13.0 Hypertensive heart and chronic kidney disease with heart failure and stage 1 through stage 4 chronic kidney disease, or unspecified chronic kidney disease; I50.22 Chronic systolic (congestive) heart failure; N17.9 Acute kidney failure, unspecified; N18.30 Chronic kidney disease, stage 3 unspecified; E86.0 Dehydration; I48.91 Unspecified atrial fibrillation; D64.9 Anemia, unspecified; E03.9 Hypothyroidism, unspecified; Z20.822 Contact with and (suspected) exposure to COVID-19; M75.102 Unspecified rotator cuff tear or rupture of left shoulder, not specified as traumatic; I95.9 Hypotension, unspecified; E11.22 Type 2 diabetes mellitus with diabetic chronic kidney disease; E78.5 Hyperlipidemia, unspecified; I25.10 Atherosclerotic heart disease of native coronary artery without angina pectoris; R62.7 Adult failure to thrive; Z79.01 Long term (current) use of anticoagulants; Z79.4 Long term (current) use of insulin; Z95.1 Presence of aortocoronary bypass graft; Z87.891 Personal history of nicotine dependence; Z79.899 Other long term (current) drug therapy; Z68.28 Body mass index [BMI] 28.0-28.9, adult
CPT/HCPCS: 36415; 71045; 71250; 80048; 80053; 80162; 81003; 82948; 83605; 83735; 83880; 84443; 84484; 85008; 85025; 85610; 85651; 85730; 86885; 86900; 86901; 86920; 87040; 87081; 87635; 93005; 93308; 93312; 93325; 93922; 93925; 93970; 94760; 97110; 97116; 97162; 97530; 99285; A4215; A4618; A6258; A6449; A7000; A7048; C1758; G0378; J0690; J1650; J1815; J2250; J2704; J2710; J3010; J3490; J7030; J7120; J7512; P9045